=== PATIENT | male | born 1955 | race Caucasian/White ===

== ENCOUNTER 2018-05-10 15:54 | Inpatient (IN) | payer OTHER ==
[~2018-05-10] VITALS: Ht 182.9 cm; Wt 74.5 kg
--- NOTE | 2018-05-10 16:31 | NUR ---
DECK STEWARD AT BEDSIDE.
[2018-05-10 16:40] LABS: BASOPHILS % (AUTO) 0.3 % (0-1); EOSINOPHILS % (AUTO) 0.4 % (0-6); HEMATOCRIT 43.1 % (42.0-52.0); HEMOGLOBIN 14.3 g/dl (14.0-17.9); LYMPHOCYTES # (AUTO) 1.2 X10'3 (1.1-4.8); LYMPHOCYTES % (AUTO) 11.3 % (21-51); MEAN CORPUSCULAR HEMOGLOBIN 31.9 PG (27.0-31.0); MEAN CORPUSCULAR HGB CONC 33.1 % (33.0-36.5); MEAN CORPUSCULAR VOLUME 96.4 FL (78-98); MEAN PLATELET VOLUME 7.3 FL (7.4-10.4); MONOCYTES % (AUTO) 10.1 % (2-12); NEUTROPHILS # (AUTO) 8.2 X10'3 (1.8-7.7); NEUTROPHILS % (AUTO) 77.9 % (42-75); PLATELET COUNT 255 X10'3 (140-440); RED BLOOD COUNT 4.47 X10'6 (4.70-6.10); RED CELL DISTRIBUTION WIDTH 12.2 % (11.5-14.5); WHITE BLOOD COUNT 10.4 X10'3 (4.5-11.0)
[2018-05-10 16:52] LABS: ALANINE AMINOTRANSFERASE 37 U/L (12-78); ALBUMIN 2.9 G/DL (3.4-5.0); ALBUMIN/GLOBULIN RATIO 0.6 (1.1-1.5); ALKALINE PHOSPHATASE 83 IU/L (46-116); ANION GAP 13 (8-16); ASPARTATE AMINO TRANSFERASE 27 U/L (10-37); BILIRUBIN,TOTAL 1.5 MG/DL (0.1-1.0); BLOOD UREA NITROGEN 30 MG/DL (7-18); BUN/CREATININE RATIO 24.4 (5.4-32.0); CALCIUM 9.2 MG/DL (8.5-10.1); CHLORIDE 99 MMOL/L (99-107); CREATININE 1.23 MG/DL (0.60-1.10); GLUCOSE 131 MG/DL (70-104); POTASSIUM 4.4 MMOL/L (3.5-5.1); SODIUM 135 MMOL/L (135-145); TOTAL PROTEIN 8.1 G/DL (6.4-8.2); eGFR 60 ML/MIN
[2018-05-10] MEDS ORDERED: iohexol 350MG/ML 100ml bottle IV ONE (16:57)
[2018-05-10 17:13] LABS: INR 1.2 INR; PARTIAL THROMBOPLASTIN TIME 29 SECONDS (22-32); PROTHROMBIN TIME 12.4 SECONDS (9.0-12.0)
[2018-05-10] MEDS ORDERED: heparin 25,000 UNIT/250ml bag 250 ML IV SCH ×2 (17:26→18:20)
--- NOTE | 2018-05-10 17:29 | NUR ---
pt to ct
[2018-05-10] MEDS ORDERED: heparin 10,000 units/1 ML INJ IV PRN ×3 (17:30→21:50)
[2018-05-10] MEDS ORDERED: heparin 10,000 units/1 ML INJ IV ONE ×2 (17:30→18:20)
[2018-05-10] MEDS ORDERED: acetaminophen 325mg tablet PO PRN (21:35)
[2018-05-10] MEDS ORDERED: magnesium hydroxide 30ml (MOM) UD suspension PO PRN (21:35)
[2018-05-10] MEDS ORDERED: ondansetron/PF 4mg/2ml inj IV PRN (21:35)
[2018-05-10] MEDS ORDERED: HYDROcodone/acetaminophen 10/325mg tab PO PRN (21:35)
[2018-05-10] MEDS ORDERED: mag hydrox/Alum hydrox/simeth 30ml oral suspension PO PRN (21:35)
[2018-05-10] MEDS ORDERED: HYDROcodone/acetaminophen 5mg/325mg tablet PO PRN (21:35)
[2018-05-10] MEDS: heparin 25,000 UNIT/250ml bag 250 ML IV SCH (21:46)
--- NOTE | 2018-05-10 22:31 | NUR ---
DUPLICATE ORDER FOR HEPARIN PLACED BY ADMITTING MD CABRERA. ORDER CANCELLED BECUASE PT HAS HEPARIN RUNNING AT 13MLS/HR (1300 U/HR) BASED ON PROTOCOL. PTT TIMED DRAW AT 0043. INITIAL INFUSION STILL RUNNIG.
[2018-05-10] MEDS: normal saline 1000ml 1,000 ML IV SCH (23:02)
--- NOTE | 2018-05-11 01:46 | NUR ---
Luis rosa in ED - 05/11/18 at 0146 by CHERIE 6HR PTT 45. NO RATE CHANGE NEEDED.
--- NOTE | 2018-05-11 01:46 | NUR ---
6HR PTT 45. NO RATE CHANGE NEEDED PER PROTOCOL.
--- NOTE | 2018-05-11 02:40 | NUR ---
pt doesn't recall which meds he takes and states no one is available to get this info. - unable to complete med rec
[2018-05-11] MEDS: heparin 25,000 UNIT/250ml bag 250 ML IV SCH ×2 (03:00→08:06)
--- NOTE | 2018-05-11 05:43 | NUR ---
PT HAS BEEN SLEEPING SINCE ASSUMING CARE. HE REMAINS ON BEDSIDE MONITORING EQUIPMENT. NO DISTRESS NOTED. WILL CONTINUE TO MONITOR.
[2018-05-11 06:34] LABS: BASOPHILS % (AUTO) 0.4 % (0-1); EOSINOPHILS # (AUTO) 0.1 X10'3 (0-0.9); EOSINOPHILS % (AUTO) 1.3 % (0-6); HEMATOCRIT 39.3 % (42.0-52.0); HEMOGLOBIN 13.1 g/dl (14.0-17.9); LYMPHOCYTES # (AUTO) 1.7 X10'3 (1.1-4.8); LYMPHOCYTES % (AUTO) 23.7 % (21-51); MEAN CORPUSCULAR HEMOGLOBIN 32.6 PG (27.0-31.0); MEAN CORPUSCULAR HGB CONC 33.4 % (33.0-36.5); MEAN CORPUSCULAR VOLUME 97.6 FL (78-98); MEAN PLATELET VOLUME 7.7 FL (7.4-10.4); MONOCYTES # (AUTO) 0.9 X10'3 (0-0.9); MONOCYTES % (AUTO) 12.3 % (2-12); NEUTROPHILS # (AUTO) 4.5 X10'3 (1.8-7.7); NEUTROPHILS % (AUTO) 62.3 % (42-75); PLATELET COUNT 264 X10'3 (140-440); RED BLOOD COUNT 4.03 X10'6 (4.70-6.10); RED CELL DISTRIBUTION WIDTH 11.8 % (11.5-14.5); WHITE BLOOD COUNT 7.2 X10'3 (4.5-11.0)
[2018-05-11 06:43] LABS: ALANINE AMINOTRANSFERASE 37 U/L (12-78); ALBUMIN 2.4 G/DL (3.4-5.0); ALBUMIN/GLOBULIN RATIO 0.5 (1.1-1.5); ALKALINE PHOSPHATASE 71 IU/L (46-116); ANION GAP 11 (8-16); ASPARTATE AMINO TRANSFERASE 29 U/L (10-37); BILIRUBIN,TOTAL 0.6 MG/DL (0.1-1.0); BLOOD UREA NITROGEN 25 MG/DL (7-18); BUN/CREATININE RATIO 25.3 (5.4-32.0); CALCIUM 8.3 MG/DL (8.5-10.1); CHLORIDE 103 MMOL/L (99-107); CREATININE 0.99 MG/DL (0.60-1.10); GLUCOSE 119 MG/DL (70-104); POTASSIUM 3.6 MMOL/L (3.5-5.1); SODIUM 137 MMOL/L (135-145); TOTAL CARBON DIOXIDE 22.8 MMOL/L (24-32); TOTAL PROTEIN 7.1 G/DL (6.4-8.2); eGFR 77 ML/MIN
[2018-05-11 07:23] LABS: BANDS% (MANUAL) 0 % (0-10); BASOPHILS % (MANUAL) 0 % (0-1); EOSINOPHILS % (MANUAL) 1 % (0-6); LYMPHOCYTES % (MANUAL) 25 % (21-51); MONOCYTES % (MANUAL) 11 % (2-12); NEUTROPHILS % (MANUAL) 63 % (42-75); PLATELET ESTIMATE NORMAL; TOTAL CELLS COUNTED 100
--- NOTE | 2018-05-11 08:30 | NUR ---
PT PLACED IN ED ROOM 12 AND IS NOW ON A HOSPITAL BED.
[2018-05-11] MEDS ORDERED: CHOL400T32 PO (10:21)
[2018-05-11] MEDS ORDERED: BENZ-38 PO (10:25)
[2018-05-11] MEDS ORDERED: LEVO500T2 PO (10:25)
[2018-05-11] MEDS: rivaroxaban 15mg tablet PO SCH ×2 (12:44→20:40)
[2018-05-11 19:00] VITALS: BP 101/68
--- NOTE | 2018-05-11 19:02 | NUR ---
Patient in room ED 18. I have received report from KITTY Louis and had the opportunity to ask questions and assume patient care.
[2018-05-11 22:00] VITALS: BP 101/70
[2018-05-12 06:21] LABS: BASOPHILS % (AUTO) 0.2 % (0-1); EOSINOPHILS # (AUTO) 0.1 X10'3 (0-0.9); EOSINOPHILS % (AUTO) 1.6 % (0-6); HEMATOCRIT 38.8 % (42.0-52.0); HEMOGLOBIN 12.9 g/dl (14.0-17.9); LYMPHOCYTES # (AUTO) 1.3 X10'3 (1.1-4.8); MEAN CORPUSCULAR HEMOGLOBIN 32.5 PG (27.0-31.0); MEAN CORPUSCULAR HGB CONC 33.2 % (33.0-36.5); MEAN CORPUSCULAR VOLUME 97.8 FL (78-98); MEAN PLATELET VOLUME 8.1 FL (7.4-10.4); MONOCYTES # (AUTO) 0.9 X10'3 (0-0.9); NEUTROPHILS # (AUTO) 4.9 X10'3 (1.8-7.7); NEUTROPHILS % (AUTO) 68.2 % (42-75); PLATELET COUNT 246 X10'3 (140-440); RED BLOOD COUNT 3.97 X10'6 (4.70-6.10); RED CELL DISTRIBUTION WIDTH 11.9 % (11.5-14.5); WHITE BLOOD COUNT 7.2 X10'3 (4.5-11.0)
[2018-05-12 06:30] VITALS: BP 101/58
--- NOTE | 2018-05-12 06:40 | NUR ---
Problems reprioritized. Patient report given, questions answered & plan of care reviewed with KITTY Delgado.
[2018-05-12 06:44] LABS: ALANINE AMINOTRANSFERASE 42 U/L (12-78); ALBUMIN 2.3 G/DL (3.4-5.0); ALBUMIN/GLOBULIN RATIO 0.5 (1.1-1.5); ALKALINE PHOSPHATASE 66 IU/L (46-116); ANION GAP 10 (8-16); ASPARTATE AMINO TRANSFERASE 30 U/L (10-37); BILIRUBIN,TOTAL 0.5 MG/DL (0.1-1.0); BLOOD UREA NITROGEN 21 MG/DL (7-18); BUN/CREATININE RATIO 21.2 (5.4-32.0); CALCIUM 8.3 MG/DL (8.5-10.1); CHLORIDE 103 MMOL/L (99-107); CREATININE 0.99 MG/DL (0.60-1.10); GLUCOSE 114 MG/DL (70-104); POTASSIUM 3.8 MMOL/L (3.5-5.1); SODIUM 136 MMOL/L (135-145); TOTAL CARBON DIOXIDE 23.1 MMOL/L (24-32); TOTAL PROTEIN 6.7 G/DL (6.4-8.2); eGFR 77 ML/MIN
--- NOTE | 2018-05-12 06:45 | NUR ---
Patient in room ORTH[facility] 4011. I have received report from Maria G and had the opportunity to ask questions and assume patient care.
[2018-05-12] MEDS: rivaroxaban 15mg tablet PO SCH ×2 (07:17→20:03)
[2018-05-12 10:00] VITALS: BP 126/59
--- NOTE | 2018-05-12 17:34 | NUR ---
Chaitanya consult: Pt seen at bedside reports UBW of 172# and that he weighed 165# [facility]. Pt reports this wt loss happened over the course of two weeks d/t decreased appetite secondary to PNA. This is severe wt loss of 4% in two weeks. Patient's clavicles present during RD visit however pt states that is normal for him and that he's always been a tall and skinny giovany. Documented PO intake 50% on regular diet however likely closely meeting nutrient needs and pt endorses an increasing appetite as well as a good appetite prior to having PNA. Pt currently does not meet criteria for malnutrition. Will continue to monitor PO trends and additional criteria needed for malnutrition dx. Addendum: 05/12/18 at [address] Amended: Links added.
[2018-05-12 18:00] VITALS: BP 107/60
--- NOTE | 2018-05-12 18:00 | NUR ---
Problems reprioritized. Patient report given, questions answered & plan of care reviewed with KITTY Cummins.
--- NOTE | 2018-05-12 18:10 | NUR ---
Patient in room ORTHO 4011. I have received report from KITTY Delgado and had the opportunity to ask questions and assume patient care.
[2018-05-12 22:00] VITALS: BP 105/58
[2018-05-12] MEDS: normal saline 1000ml 1,000 ML IV SCH (23:31)
[2018-05-13 06:00] VITALS: BP 106/54
--- NOTE | 2018-05-13 06:30 | NUR ---
Problems reprioritized. Patient report given, questions answered & plan of care reviewed with KITTY Choudhury.
--- NOTE | 2018-05-13 06:41 | NUR ---
Patient in room ORTH[facility] 4011. I have received report from KITTY FRITZ and had the opportunity to ask questions and assume patient care.
[2018-05-13 07:20] LABS: BASOPHILS % (AUTO) 0.4 % (0-1); EOSINOPHILS # (AUTO) 0.1 X10'3 (0-0.9); EOSINOPHILS % (AUTO) 1.2 % (0-6); HEMATOCRIT 43.7 % (42.0-52.0); HEMOGLOBIN 14.4 g/dl (14.0-17.9); LYMPHOCYTES # (AUTO) 1.8 X10'3 (1.1-4.8); LYMPHOCYTES % (AUTO) 18.8 % (21-51); MEAN CORPUSCULAR HEMOGLOBIN 32.1 PG (27.0-31.0); MEAN CORPUSCULAR HGB CONC 33.1 % (33.0-36.5); MEAN CORPUSCULAR VOLUME 97.2 FL (78-98); MEAN PLATELET VOLUME 7.7 FL (7.4-10.4); MONOCYTES # (AUTO) 1.2 X10'3 (0-0.9); MONOCYTES % (AUTO) 12.6 % (2-12); NEUTROPHILS # (AUTO) 6.5 X10'3 (1.8-7.7); PLATELET COUNT 315 X10'3 (140-440); RED BLOOD COUNT 4.49 X10'6 (4.70-6.10); RED CELL DISTRIBUTION WIDTH 12.3 % (11.5-14.5); WHITE BLOOD COUNT 9.6 X10'3 (4.5-11.0)
[2018-05-13 07:24] LABS: ALANINE AMINOTRANSFERASE 51 U/L (12-78); ALBUMIN 2.6 G/DL (3.4-5.0); ALBUMIN/GLOBULIN RATIO 0.5 (1.1-1.5); ALKALINE PHOSPHATASE 75 IU/L (46-116); ANION GAP 11 (8-16); ASPARTATE AMINO TRANSFERASE 30 U/L (10-37); BILIRUBIN,TOTAL 0.6 MG/DL (0.1-1.0); BLOOD UREA NITROGEN 18 MG/DL (7-18); BUN/CREATININE RATIO 17.6 (5.4-32.0); CALCIUM 8.8 MG/DL (8.5-10.1); CHLORIDE 100 MMOL/L (99-107); CREATININE 1.02 MG/DL (0.60-1.10); GLUCOSE 117 MG/DL (70-104); SODIUM 134 MMOL/L (135-145); TOTAL PROTEIN 7.7 G/DL (6.4-8.2); eGFR 74 ML/MIN
[2018-05-13] MEDS: rivaroxaban 15mg tablet PO SCH ×2 (07:53→19:50)
[2018-05-13 10:02] VITALS: BP 90/61
[2018-05-13 10:19] VITALS: BP 102/56
[2018-05-13] MEDS ORDERED: iohexol 300mg/ml 100ml inj. ONE (11:27)
--- NOTE | 2018-05-13 11:36 | NUR ---
PATIENT DOWN TO CT PROCEDURE VIA WHEELCHAIR ACCOMPANIED BY X1 STAFF.
--- NOTE | 2018-05-13 11:52 | NUR ---
PATIENT RETURNED TO FLOOR.
--- NOTE | 2018-05-13 13:04 | NUR ---
Problems reprioritized. Patient report given, questions answered & plan of care reviewed with KITTY MARTINEZ.
--- NOTE | 2018-05-13 13:06 | NUR ---
Patient in room [facility]TH[facility] 4011. I have received report from Gian TANG and had the opportunity to ask questions and assume patient care.
[2018-05-13 18:00] VITALS: BP 95/47
--- NOTE | 2018-05-13 18:13 | NUR ---
Problems reprioritized. Patient report given, questions answered & plan of care reviewed with Jessica TAGN.
[2018-05-13 22:00] VITALS: BP 103/62
--- NOTE | 2018-05-14 02:38 | NUR ---
Patient report given to Carri TANG
--- NOTE | 2018-05-14 03:00 | NUR ---
ASSUMED CARE OF PATIENT, IS SLEEPING SKIN WARM AND DRY AND RESP NOT LABORED, SKIN PINK IN COLOR Addendum: 05/14/18 at 0429 by Carri Marcos RN Amended: Links added.
[2018-05-14 06:00] VITALS: BP 88/49
[2018-05-14 06:10] VITALS: BP 94/50
[2018-05-14] MEDS: rivaroxaban 15mg tablet PO SCH ×2 (07:10→19:40)
[2018-05-14 08:27] LABS: BASOPHILS % (AUTO) 0.3 % (0-1); EOSINOPHILS # (AUTO) 0.1 X10'3 (0-0.9); EOSINOPHILS % (AUTO) 1.4 % (0-6); HEMOGLOBIN 13.6 g/dl (14.0-17.9); LYMPHOCYTES # (AUTO) 1.4 X10'3 (1.1-4.8); LYMPHOCYTES % (AUTO) 16.5 % (21-51); MEAN CORPUSCULAR HEMOGLOBIN 31.9 PG (27.0-31.0); MEAN CORPUSCULAR HGB CONC 33.1 % (33.0-36.5); MEAN CORPUSCULAR VOLUME 96.3 FL (78-98); MONOCYTES # (AUTO) 1.1 X10'3 (0-0.9); MONOCYTES % (AUTO) 12.3 % (2-12); NEUTROPHILS % (AUTO) 69.5 % (42-75); PLATELET COUNT 300 X10'3 (140-440); RED BLOOD COUNT 4.26 X10'6 (4.70-6.10); RED CELL DISTRIBUTION WIDTH 12.2 % (11.5-14.5); WHITE BLOOD COUNT 8.6 X10'3 (4.5-11.0)
[2018-05-14 08:49] LABS: ALANINE AMINOTRANSFERASE 55 U/L (12-78); ALBUMIN 2.5 G/DL (3.4-5.0); ALBUMIN/GLOBULIN RATIO 0.5 (1.1-1.5); ALKALINE PHOSPHATASE 71 IU/L (46-116); ANION GAP 12 (8-16); ASPARTATE AMINO TRANSFERASE 34 U/L (10-37); BILIRUBIN,TOTAL 0.6 MG/DL (0.1-1.0); BLOOD UREA NITROGEN 19 MG/DL (7-18); BUN/CREATININE RATIO 18.3 (5.4-32.0); CALCIUM 8.6 MG/DL (8.5-10.1); CHLORIDE 100 MMOL/L (99-107); CREATININE 1.04 MG/DL (0.60-1.10); GLUCOSE 113 MG/DL (70-104); POTASSIUM 3.9 MMOL/L (3.5-5.1); SODIUM 136 MMOL/L (135-145); TOTAL CARBON DIOXIDE 23.9 MMOL/L (24-32); TOTAL PROTEIN 7.2 G/DL (6.4-8.2); eGFR 73 ML/MIN
[2018-05-14 10:00] VITALS: BP 89/40
[2018-05-14 18:00] VITALS: BP 96/58
[2018-05-14] MEDS: normal saline 1000ml 1,000 ML IV SCH (21:35)
[2018-05-14 22:00] VITALS: BP 98/56
[2018-05-15 06:00] VITALS: BP 94/53
[2018-05-15 06:40] LABS: BASOPHILS % (AUTO) 0.2 % (0-1); EOSINOPHILS # (AUTO) 0.1 X10'3 (0-0.9); EOSINOPHILS % (AUTO) 1.9 % (0-6); HEMATOCRIT 36.9 % (42.0-52.0); HEMOGLOBIN 12.4 g/dl (14.0-17.9); LYMPHOCYTES # (AUTO) 1.5 X10'3 (1.1-4.8); LYMPHOCYTES % (AUTO) 19.6 % (21-51); MEAN CORPUSCULAR HEMOGLOBIN 32.4 PG (27.0-31.0); MEAN CORPUSCULAR HGB CONC 33.5 % (33.0-36.5); MEAN CORPUSCULAR VOLUME 96.8 FL (78-98); MEAN PLATELET VOLUME 7.6 FL (7.4-10.4); MONOCYTES % (AUTO) 12.9 % (2-12); NEUTROPHILS # (AUTO) 4.9 X10'3 (1.8-7.7); NEUTROPHILS % (AUTO) 65.4 % (42-75); PLATELET COUNT 329 X10'3 (140-440); RED BLOOD COUNT 3.81 X10'6 (4.70-6.10); RED CELL DISTRIBUTION WIDTH 12.5 % (11.5-14.5); WHITE BLOOD COUNT 7.5 X10'3 (4.5-11.0)
[2018-05-15] MEDS: rivaroxaban 15mg tablet PO SCH ×2 (07:08→19:50)
[2018-05-15 07:15] LABS: ALANINE AMINOTRANSFERASE 60 U/L (12-78); ALBUMIN 2.4 G/DL (3.4-5.0); ALBUMIN/GLOBULIN RATIO 0.5 (1.1-1.5); ALKALINE PHOSPHATASE 68 IU/L (46-116); ANION GAP 9 (8-16); ASPARTATE AMINO TRANSFERASE 35 U/L (10-37); BILIRUBIN,TOTAL 0.5 MG/DL (0.1-1.0); BLOOD UREA NITROGEN 19 MG/DL (7-18); BUN/CREATININE RATIO 17.9 (5.4-32.0); CALCIUM 8.4 MG/DL (8.5-10.1); CHLORIDE 102 MMOL/L (99-107); CREATININE 1.06 MG/DL (0.60-1.10); GLUCOSE 109 MG/DL (70-104); POTASSIUM 3.8 MMOL/L (3.5-5.1); SODIUM 137 MMOL/L (135-145); TOTAL CARBON DIOXIDE 25.6 MMOL/L (24-32); TOTAL PROTEIN 6.9 G/DL (6.4-8.2); eGFR 71 ML/MIN
[2018-05-15 10:00] VITALS: BP 117/34
--- NOTE | 2018-05-15 11:28 | NUR ---
Initial: Pt admit w/ acute DVT PO 75-100% regular diet meeting needs. LBM 05/14. No nutrition concerns at this time. Addendum: 05/15/18 at [address] Amended: Links added.
[2018-05-15 18:00] VITALS: BP 91/46
--- NOTE | 2018-05-15 18:07 | NUR ---
Problems reprioritized. Patient report given, questions answered & plan of care reviewed with Hazel TANG.
[2018-05-15 22:00] VITALS: BP 96/62
[2018-05-16 06:00] VITALS: BP 94/51
[2018-05-16] MEDS: rivaroxaban 15mg tablet PO SCH ×2 (08:15→19:44)
[2018-05-16 10:01] VITALS: BP 99/54
[2018-05-16] MEDS ORDERED: RIVA15TA PO (12:58)
[2018-05-16 18:00] VITALS: BP 106/63
--- NOTE | 2018-05-16 18:12 | NUR ---
Problems reprioritized. Patient report given, questions answered & plan of care reviewed with Bria Mcguire RN.
--- NOTE | 2018-05-16 18:30 | NUR ---
Patient in room [facility]TH[facility] 4011. I have received report from KITTY Mirza and had the opportunity to ask questions and assume patient care. Patient sitting up eating dinner at this time. No c/o pain or distress.
[2018-05-16] MEDS: normal saline 1000ml 1,000 ML IV SCH (21:35)
[2018-05-16 21:49] VITALS: BP 92/59
[2018-05-17 06:00] VITALS: BP 97/47
--- NOTE | 2018-05-17 06:16 | NUR ---
Problems reprioritized. Patient report given, questions answered & plan of care reviewed with KITTY Hernández.
--- NOTE | 2018-05-17 06:52 | NUR ---
Patient in room ORTH[facility] 4011. I have received report from Bria Mcguire RN and had the opportunity to ask questions and assume patient care.
[2018-05-17] MEDS: rivaroxaban 15mg tablet PO SCH (08:37)
[2018-05-17 09:17] LABS: ANTITHROMBIN ACTIVITY 123 % (75-135); ANTITHROMBIN ANTIGEN 82 % (72-124); PROTEIN S, FREE 104 % (57-157); PROTEIN S, TOTAL 103 % (60-150)
[2018-05-17 10:30] VITALS: BP 105/54
[2018-05-17] MEDS ORDERED: heparin 10,000 units/1 ML INJ IV ONE (14:50)
[2018-05-17] MEDS: heparin 25,000 UNIT/250ml bag 250 ML IV SCH (16:50)
[2018-05-17 18:00] VITALS: BP 101/59
--- NOTE | 2018-05-17 18:27 | NUR ---
Problems reprioritized. Patient report given, questions answered & plan of care reviewed with Bria Mcguire RN.
--- NOTE | 2018-05-17 18:49 | NUR ---
Patient in room ORTH[facility] 4011. I have received report from KITTY Hernández and had the opportunity to ask questions and assume patient care. Helped patient from chair to bed. Hep gtt active. Patient sitting up in bed eating dinner at this time.
[2018-05-17 22:08] VITALS: BP 102/56
--- NOTE | 2018-05-18 02:32 | NUR ---
PTT within normal range. No change made to IV gtt.
[2018-05-18 06:00] VITALS: BP 107/54
--- NOTE | 2018-05-18 06:09 | NUR ---
Patient in room ORTH[facility] 4009. I have received report from PRESTON TANG and had the opportunity to ask questions and assume patient care.
--- NOTE | 2018-05-18 06:09 | NUR ---
Problems reprioritized. Patient report given, questions answered & plan of care reviewed with KITTY Lofton.
--- NOTE | 2018-05-18 09:24 | NUR ---
LAB LATE TO DRAW PTT FOR HEPARIN, NOTIFIED OF TIMED DRAW.
[2018-05-18 09:47] LABS: BASOPHILS % (AUTO) 0.2 % (0-1); EOSINOPHILS # (AUTO) 0.1 X10'3 (0-0.9); EOSINOPHILS % (AUTO) 2.2 % (0-6); HEMATOCRIT 38.2 % (42.0-52.0); LYMPHOCYTES # (AUTO) 1.7 X10'3 (1.1-4.8); LYMPHOCYTES % (AUTO) 26.6 % (21-51); MEAN CORPUSCULAR HEMOGLOBIN 32.8 PG (27.0-31.0); MEAN CORPUSCULAR HGB CONC 34.1 % (33.0-36.5); MEAN CORPUSCULAR VOLUME 96.1 FL (78-98); MEAN PLATELET VOLUME 8.1 FL (7.4-10.4); MONOCYTES # (AUTO) 0.9 X10'3 (0-0.9); MONOCYTES % (AUTO) 13.4 % (2-12); NEUTROPHILS # (AUTO) 3.7 X10'3 (1.8-7.7); NEUTROPHILS % (AUTO) 57.6 % (42-75); PLATELET COUNT 337 X10'3 (140-440); RED BLOOD COUNT 3.97 X10'6 (4.70-6.10); RED CELL DISTRIBUTION WIDTH 13.5 % (11.5-14.5); WHITE BLOOD COUNT 6.5 X10'3 (4.5-11.0)
[2018-05-18 10:00] VITALS: BP 104/49
[2018-05-18] MEDS: heparin 25,000 UNIT/250ml bag 250 ML IV SCH ×2 (10:24→22:37)
--- NOTE | 2018-05-18 14:23 | NUR ---
PAGER ID: [phone] MESSAGE: WILLAM [id number] RE: RODOLFO [id number] PT'S NIECE(RN AT [facility]) HAS QUESTIONS REGARDING PROCEDURE IF YOU HAVE TIME TO CALL HER. [phone]
[2018-05-18 18:00] VITALS: BP 103/65
--- NOTE | 2018-05-18 18:15 | NUR ---
Problems reprioritized. Patient report given, questions answered & plan of care reviewed with PRESTON TANG.
[2018-05-18] MEDS: normal saline 1000ml 1,000 ML IV SCH (21:35)
[2018-05-18 22:05] VITALS: BP 104/54
[2018-05-18] MEDS: heparin 10,000 units/1 ML INJ IV PRN (22:49)
[2018-05-19] MEDS: heparin 25,000 UNIT/250ml bag 250 ML IV SCH ×2 (02:53→05:35)
[2018-05-19 05:08] LABS: BASOPHILS % (AUTO) 0.4 % (0-1); EOSINOPHILS # (AUTO) 0.1 X10'3 (0-0.9); EOSINOPHILS % (AUTO) 1.8 % (0-6); HEMATOCRIT 36.9 % (42.0-52.0); HEMOGLOBIN 12.9 g/dl (14.0-17.9); LYMPHOCYTES # (AUTO) 1.5 X10'3 (1.1-4.8); LYMPHOCYTES % (AUTO) 22.2 % (21-51); MEAN CORPUSCULAR HEMOGLOBIN 33.3 PG (27.0-31.0); MEAN CORPUSCULAR HGB CONC 34.9 % (33.0-36.5); MEAN CORPUSCULAR VOLUME 95.3 FL (78-98); MEAN PLATELET VOLUME 6.9 FL (7.4-10.4); MONOCYTES # (AUTO) 0.9 X10'3 (0-0.9); MONOCYTES % (AUTO) 13.2 % (2-12); NEUTROPHILS # (AUTO) 4.2 X10'3 (1.8-7.7); NEUTROPHILS % (AUTO) 62.4 % (42-75); PLATELET COUNT 367 X10'3 (140-440); RED BLOOD COUNT 3.87 X10'6 (4.70-6.10); RED CELL DISTRIBUTION WIDTH 12.9 % (11.5-14.5); WHITE BLOOD COUNT 6.8 X10'3 (4.5-11.0)
[2018-05-19] MEDS: heparin 10,000 units/1 ML INJ IV PRN (05:36)
[2018-05-19 06:00] VITALS: BP 103/56
--- NOTE | 2018-05-19 06:31 | NUR ---
Problems reprioritized. Patient report given, questions answered & plan of care reviewed with KITTY Lofton.
[2018-05-19 10:00] VITALS: BP 102/49
== END 2018-05-19 13:30 | disposition home health service (06) | DRG 682 ==
LOC: ER 15:54 → ED HOLD 21:35 → EDBEDREQ 05-11 18:46 → ORTHO 4S 05-11 19:10
PROVIDERS: ADMIT Internal Medicine; ATTEND Internal Medicine
PROC: B32T1ZZ Computerized Tomography (CT Scan) of Left Pulmonary Artery using Low Osmolar Contrast (ICD-10-PCS; principal; 2018-05-10)
PROC: B3201ZZ Computerized Tomography (CT Scan) of Thoracic Aorta using Low Osmolar Contrast (ICD-10-PCS; 2018-05-10)
PROC: B32S1ZZ Computerized Tomography (CT Scan) of Right Pulmonary Artery using Low Osmolar Contrast (ICD-10-PCS; 2018-05-10)
PROC: BW211ZZ Computerized Tomography (CT Scan) of Abdomen and Pelvis using Low Osmolar Contrast (ICD-10-PCS; 2018-05-13)
DX: N17.9 Acute kidney failure, unspecified (principal); I26.99 Other pulmonary embolism without acute cor pulmonale; I82.412 Acute embolism and thrombosis of left femoral vein; J44.9 Chronic obstructive pulmonary disease, unspecified; K76.89 Other specified diseases of liver; T17.990A Other foreign object in respiratory tract, part unspecified in causing asphyxiation, initial encounter; X58.XXXA Exposure to other specified factors, initial encounter; Z79.01 Long term (current) use of anticoagulants; Z87.891 Personal history of nicotine dependence; Z87.01 Personal history of pneumonia (recurrent); Z79.899 Other long term (current) drug therapy; Y93.89 Activity, other specified; Y92.89 Other specified places as the place of occurrence of the external cause; Y99.8 Other external cause status
CPT/HCPCS: 36415; 71275; 74177; 80053; 81479; 83891; 83894; 83898; 84145; 84484; 85025; 85300; 85301; 85303; 85305; 85306; 85610; 85730; 86146; 86147; 86885; 86900; 86901; 87070; 93005; 93926; 93971; 96365; 97110; 97116; 97162; 97530; 99285; G0378; J1644; J7030; Q9967

== ENCOUNTER 2019-09-17 10:51 | Emergency (ER) | payer OTHER ==
[~2019-09-17] VITALS: Ht 185.4 cm; Wt 82.0 kg
[~2019-09-17 10:51] MED LIST: BENZ-38 PO; CHOL400T32 PO; LEVO500T2 PO; RIVA15TA PO
--- NOTE | 2019-09-17 11:57 | NUR ---
measurement technician at bedside .
[2019-09-17 13:12] VITALS: BP 140/85
== END 2019-09-17 13:09 | disposition home or self-care (01) ==
LOC: ER 10:51
DX: M79.652 Pain in left thigh (principal); J44.9 Chronic obstructive pulmonary disease, unspecified; Z87.01 Personal history of pneumonia (recurrent); Z98.890 Other specified postprocedural states; Z79.2 Long term (current) use of antibiotics; Z79.899 Other long term (current) drug therapy
CPT/HCPCS: 93922; 93926; 99285

== ENCOUNTER 2020-04-28 18:16 | Emergency (ER) | payer OTHER ==
[~2020-04-28] VITALS: Ht 185.4 cm; Wt 72.7 kg
[2020-04-28 19:21] LABS: BASOPHILS % (AUTO) 0.1 % (0-1); EOSINOPHILS % (AUTO) 0 % (0-6); HEMATOCRIT 48.1 % (42.0-52.0); HEMOGLOBIN 16.9 g/dl (14.0-17.9); LYMPHOCYTES # (AUTO) 0.7 X10'3 (1.1-4.8); LYMPHOCYTES % (AUTO) 17.8 % (21-51); MEAN CORPUSCULAR HEMOGLOBIN 33.7 PG (27.0-31.0); MEAN CORPUSCULAR HGB CONC 35.1 g/dL (33.0-36.5); MEAN CORPUSCULAR VOLUME 96.1 FL (78-98); MEAN PLATELET VOLUME 7.7 FL (7.4-10.4); MONOCYTES # (AUTO) 0.8 X10'3 (0-0.9); MONOCYTES % (AUTO) 20.5 % (2-12); NEUTROPHILS # (AUTO) 2.5 X10'3 (1.8-7.7); NEUTROPHILS % (AUTO) 61.6 % (42-75); PLATELET COUNT 206 X10'3 (140-440); RED BLOOD COUNT 5.01 X10'6 (4.70-6.10); RED CELL DISTRIBUTION WIDTH 12.8 % (11.5-14.5); WHITE BLOOD COUNT 4.1 X10'3 (4.5-11.0)
--- NOTE | 2020-04-28 19:24 | NUR ---
PT TO CT VIA WHEELCHAIR WITH BILINGUAL OFFICE ASSISTANT
[2020-04-28 19:33] LABS: ALANINE AMINOTRANSFERASE 19 U/L (12-78); ALBUMIN 3.6 G/DL (3.4-5.0); ALBUMIN/GLOBULIN RATIO 0.8 (1.1-1.5); ALKALINE PHOSPHATASE 82 IU/L (46-116); ANION GAP 12 (8-16); ASPARTATE AMINO TRANSFERASE 20 U/L (10-37); BILIRUBIN,TOTAL 1.6 MG/DL (0.1-1.0); BLOOD UREA NITROGEN 22 MG/DL (7-18); BUN/CREATININE RATIO 15.4 (5.4-32.0); CALCIUM 8.7 MG/DL (8.5-10.1); CHLORIDE 101 MMOL/L (99-107); CREATININE 1.43 MG/DL (0.60-1.10); GLUCOSE 150 MG/DL (70-104); LIPASE 89 U/L (73-393); POTASSIUM 3.5 MMOL/L (3.5-5.1); SODIUM 134 MMOL/L (135-145); TOTAL CARBON DIOXIDE 21.5 MMOL/L (24-32); eGFR 50 ML/MIN
[2020-04-28] MEDS ORDERED: mag hydrox/Alum hydrox/simeth 30ml oral suspension PO ONE (19:55)
[2020-04-28] MEDS ORDERED: normal saline 1000ML IV soln IVB ONE (19:55)
[2020-04-28] MEDS ORDERED: ketorolac tromethamine 15mg/ml inj. IM ONE (19:55)
[2020-04-28] MEDS ORDERED: dicyclomine 10 MG capsule PO ONE (19:55)
[2020-04-28 20:15] LABS: NUCLEATED RED BLOOD CELLS 10 /100WBC (0-0); PLATELET ESTIMATE NORMAL; TOTAL CELLS COUNTED 100
[2020-04-28] MEDS ORDERED: DOCU100C38 PO (20:20)
[2020-04-28] MEDS ORDERED: DICY10CA88 PO (20:20)
[2020-04-28] MEDS ORDERED: MAG355OR18 PO (20:20)
[2020-04-28 21:24] LABS: CLARITY,URINE CLEAR (Clear); COLOR,URINE YELLOW (Yellow); GLUCOSE, URINE NEGATIVE (Neg); KETONES,URINE 15 mg/dl (Neg); LEUKOCYTE ESTERASE ,URINE NEGATIVE (Neg); NITRITES, URINE NEGATIVE (Neg); OCCULT BLOOD,URINE SMALL (Neg); PROTEIN,URINE 30 mg/dl (Neg)
[2020-04-28 21:30] LABS: UA COLLECTION TYPE CLN CATCH MIDSTREAM
[2020-04-28 21:31] LABS: BACTERIA,URINE NONE SEEN /HPF (Neg); RBC,URINE 0-2 /HPF (0-2); SQUAMOUS EPITHELIAL CELL,UR FEW /LPF (FEW); WBC,URINE NONE SEEN /HPF (0-4)
[2020-04-28 21:46] VITALS: BP 122/65
== END 2020-04-28 21:57 | disposition home or self-care (01) ==
LOC: ER 18:17
DX: U07.1 COVID-19 (principal); R10.84 Generalized abdominal pain; E86.0 Dehydration; Z79.899 Other long term (current) drug therapy
CPT/HCPCS: 36415; 74176; 80053; 81001; 83690; 84484; 85007; 85025; 87635; 96360; 96372; 99284; J1885; J7030; U0003